=== PATIENT | male | born 1950 | race Caucasian/White ===

== ENCOUNTER 2019-10-26 09:47 | Inpatient (IN) ==
[2019-10-26] MEDS ORDERED: *HR* Midazolam HCl 2 MG/2 ML VIAL ONE (10:54)
[2019-10-26] MEDS ORDERED: *HR* Heparin 10,000 UNIT/10 ML VIAL ONE (11:24)
[2019-10-26] MEDS ORDERED: Ondansetron 4 MG/2 ML VIAL ONE (11:49)
[2019-10-26] MEDS ORDERED: Naloxone 0.4 MG/ML INJ IVP PRN (13:09)
[2019-10-26] MEDS ORDERED: Ondansetron 4 MG/2 ML VIAL IVP PRN (13:16)
[2019-10-26] MEDS ORDERED: Aspirin 325 MG TABLET PO ONE (13:19)
[2019-10-26] MEDS ORDERED: Dextrose Gel 15 GM/37.5 ML TUBE PO PRN ×2 (13:26)
[2019-10-26] MEDS ORDERED: *HR* Dextrose 50 % in Water (Syg) 50 ML SYRINGE IVP PRN (13:26)
[2019-10-26] MEDS ORDERED: D5% in Water 1,000 ML IVC PRN (13:26)
[2019-10-26] MEDS: Insulin LISPRO 300 UNITS/3 ML VIAL SQ SCH (15:00)
[2019-10-26] MEDS ORDERED: Perflutren Lipid Microsphere 1.3 ML in 0.9 % Sodium Chloride 8.7 ML IVP ONE (15:56)
[2019-10-26] MEDS: Amiodarone Premix 360 MG/200 ML BAG IVC SCH (16:45)
[2019-10-26] MEDS: *HR* Heparin 5,000 UNIT/ML VIAL SQ SCH (18:15)
[2019-10-26 18:47] LABS: Estimated Average Glucose 103 mg/dl
[2019-10-26] MEDS: *HR* Ticagrelor 90 MG TABLET PO SCH (21:48)
[2019-10-27] MEDS: Amiodarone Premix 360 MG/200 ML BAG IVC SCH (04:42)
[2019-10-27 05:27] LABS: Alanine Aminotransferase 18 Units/L (7-52); Albumin 3.4 g/dL (3.5-5.7); Albumin/Globulin Ratio 1.7 (1.1-2.2); Alkaline Phosphatase 24 Units/L (34-104); Aspartate Amino Transferase 42 Units/L (13-39); BUN/Creatinine Ratio 17 (6-26); Bilirubin,Total 0.3 mg/dL (0.3-1.0); Blood Urea Nitrogen 22 mg/dL (8-23); Calcium 8.8 mg/dL (8.6-10.3); Carbon Dioxide 32 mEq/L (23-29); Chloride 106 mEq/L (98-107); Glucose 101 mg/dL (70-105); Magnesium 2.1 mg/dL (1.6-2.6); Osmolality,Calculated 293 (280-300); Potassium 3.9 mEq/L (3.5-5.1); Sodium 140 mEq/L (136-145); Total Protein 5.4 g/dL (6.4-8.9); eGFR For African Americans > 60 (> 60); eGFR For Non-African Americans 55 (> 60)
[2019-10-27] MEDS: *HR* Heparin 5,000 UNIT/ML VIAL SQ SCH ×2 (05:35→18:05)
[2019-10-27] MEDS: *HR* Ticagrelor 90 MG TABLET PO SCH ×2 (08:31→20:57)
[2019-10-27] MEDS: Insulin LISPRO 300 UNITS/3 ML VIAL SQ SCH ×3 (08:41→15:29)
[2019-10-27] MEDS ORDERED: Lisinopril 20 MG TABLET PO SCH (09:00)
[2019-10-27] MEDS ORDERED: Aspirin 81 MG TAB.CHEW PO SCH (09:00)
[2019-10-27] MEDS ORDERED: Dextrose Gel 15 GM/37.5 ML TUBE PO PRN ×2 (19:19)
[2019-10-27] MEDS ORDERED: *HR* Dextrose 50 % in Water (Syg) 50 ML SYRINGE IVP PRN (19:19)
[2019-10-27] MEDS ORDERED: Naloxone 0.4 MG/ML INJ IVP PRN (19:19)
[2019-10-27] MEDS ORDERED: D5% in Water 1,000 ML IVC PRN (19:19)
[2019-10-27] MEDS ORDERED: Ondansetron 4 MG/2 ML VIAL IVP PRN (19:19)
[2019-10-28 01:51] LABS: Basophils % 0.4 %; Eosinophils # 0.1 K/mcL (0.0-0.6); Hematocrit 37.9 % (37.5-50.1); Hemoglobin 12.3 g/dL (12.9-16.9); Immature Granulocytes % 0.4 % (0-4); Lymphocytes # 0.9 K/mcL (0.6-4.6); Lymphocytes % 10.9 %; Mean Corpuscular HGB Conc 32.5 g/dL (31.6-35.5); Mean Corpuscular Hemoglobin 30.8 pg (28.0-33.3); Mean Corpuscular Volume 94.8 fL (83.0-100.0); Mean Platelet Volume 10.5 fL (9.4-12.4); Monocytes # 0.8 K/mcL (0.0-1.3); Monocytes % 9.7 %; Neutrophils # 6.5 K/mcL (1.6-8.9); Platelet Count 172 K/mcL (140-400); Red Cell Distribution Width 12.4 % (11.5-14.5); Segmented Neutrophils % 77.6 %; White Blood Count 8.3 K/mcL (4.3-11.1)
[2019-10-28 02:05] LABS: Chol/HDL Ratio 3.8 (0-4.9)
[2019-10-28 04:06] LABS: Albumin 3.5 g/dL (3.5-5.7); Albumin/Globulin Ratio 1.7 (1.1-2.2); Bilirubin,Total 0.5 mg/dL (0.3-1.0); Globulin 2.1 g/dL (2.4-3.5); Potassium 4.3 mEq/L (3.5-5.1); Total Protein 5.6 g/dL (6.4-8.9)
[2019-10-28] MEDS: *HR* Heparin 5,000 UNIT/ML VIAL SQ SCH ×2 (05:10→17:59)
[2019-10-28] MEDS ORDERED: 0.9 % Sodium Chloride 1,000 ML IVC SCH (08:15)
[2019-10-28] MEDS: Fenofibrate 54 MG TABLET PO SCH (08:33)
[2019-10-28] MEDS: hydroCHLOROthiazide 25 MG TABLET PO SCH (08:33)
[2019-10-28] MEDS: Cholecalciferol (D-3) 1,000 UNIT (25MCG) TABLET PO SCH (08:33)
[2019-10-28] MEDS: Aspirin 81 MG TAB.CHEW PO SCH (08:33)
[2019-10-28] MEDS: *HR* Glimepiride 2 MG TABLET PO SCH (08:33)
[2019-10-28] MEDS: *HR* Ticagrelor 90 MG TABLET PO SCH ×2 (08:34→21:34)
[2019-10-28] MEDS: Insulin LISPRO 300 UNITS/3 ML VIAL SQ SCH ×3 (08:35→16:19)
[2019-10-28] MEDS ORDERED: Lisinopril 20 MG TABLET PO SCH (09:00)
[2019-10-28] MEDS: *HR* Pioglitazone 15 MG TABLET PO SCH (10:29)
[2019-10-28] MEDS: amLODIPine 5 MG TABLET PO SCH (13:47)
[2019-10-29 03:01] LABS: Alanine Aminotransferase 19 Units/L (7-52); Albumin 3.5 g/dL (3.5-5.7); Albumin/Globulin Ratio 1.7 (1.1-2.2); Alkaline Phosphatase 26 Units/L (34-104); Aspartate Amino Transferase 24 Units/L (13-39); BUN/Creatinine Ratio 21 (6-26); Bilirubin,Total 0.6 mg/dL (0.3-1.0); Blood Urea Nitrogen 26 mg/dL (8-23); Carbon Dioxide 27 mEq/L (23-29); Chloride 104 mEq/L (98-107); Globulin 2.1 g/dL (2.4-3.5); Glucose 72 mg/dL (70-105); Osmolality,Calculated 291 (280-300); Potassium 4.2 mEq/L (3.5-5.1); Sodium 139 mEq/L (136-145); Total Protein 5.6 g/dL (6.4-8.9); eGFR For African Americans > 60 (> 60); eGFR For Non-African Americans 59 (> 60)
[2019-10-29 03:06] LABS: Basophils % 0.4 %; Eosinophils # 0.1 K/mcL (0.0-0.6); Eosinophils % 1.5 %; Hematocrit 37.8 % (37.5-50.1); Hemoglobin 12.9 g/dL (12.9-16.9); Immature Granulocytes % 0.6 % (0-4); Lymphocytes % 13.3 %; Mean Corpuscular HGB Conc 34.1 g/dL (31.6-35.5); Mean Corpuscular Hemoglobin 30.8 pg (28.0-33.3); Mean Corpuscular Volume 90.2 fL (83.0-100.0); Mean Platelet Volume 10.8 fL (9.4-12.4); Monocytes # 0.9 K/mcL (0.0-1.3); Monocytes % 11.5 %; Neutrophils # 5.7 K/mcL (1.6-8.9); Platelet Count 172 K/mcL (140-400); Red Blood Count 4.19 M/mcL (4.19-5.50); Red Cell Distribution Width 12.1 % (11.5-14.5); Segmented Neutrophils % 72.7 %; White Blood Count 7.8 K/mcL (4.3-11.1)
[2019-10-29] MEDS: *HR* Heparin 5,000 UNIT/ML VIAL SQ SCH ×2 (06:55→17:21)
[2019-10-29] MEDS: Lisinopril 20 MG TABLET PO SCH (09:34)
[2019-10-29] MEDS: Insulin LISPRO 300 UNITS/3 ML VIAL SQ SCH ×3 (09:34→17:21)
[2019-10-29] MEDS: Aspirin 81 MG TAB.CHEW PO SCH (09:35)
[2019-10-29] MEDS: Fenofibrate 54 MG TABLET PO SCH (09:35)
[2019-10-29] MEDS: hydroCHLOROthiazide 25 MG TABLET PO SCH (09:35)
[2019-10-29] MEDS: *HR* Pioglitazone 15 MG TABLET PO SCH (09:35)
[2019-10-29] MEDS: *HR* Glimepiride 2 MG TABLET PO SCH (09:35)
[2019-10-29] MEDS: amLODIPine 5 MG TABLET PO SCH (09:35)
[2019-10-29] MEDS: *HR* Ticagrelor 90 MG TABLET PO SCH ×2 (09:36→20:51)
[2019-10-29] MEDS: Cholecalciferol (D-3) 1,000 UNIT (25MCG) TABLET PO SCH (09:36)
[2019-10-29] MEDS ORDERED: amLODIPine 5 MG TABLET PO ONE (11:00)
[2019-10-29] MEDS ORDERED: carvediloL 6.25 MG TABLET PO SCH (17:00)
[2019-10-30] MEDS: *HR* Heparin 5,000 UNIT/ML VIAL SQ SCH (06:35)
[2019-10-30] MEDS ORDERED: carvediloL 6.25 MG TABLET PO SCH (08:00)
[2019-10-30 08:06] VITALS: BP 174/96
[2019-10-30] MEDS: Insulin LISPRO 300 UNITS/3 ML VIAL SQ SCH (08:40)
[2019-10-30] MEDS: Lisinopril 20 MG TABLET PO SCH (08:49)
[2019-10-30] MEDS: Cholecalciferol (D-3) 1,000 UNIT (25MCG) TABLET PO SCH (08:49)
[2019-10-30] MEDS: hydroCHLOROthiazide 25 MG TABLET PO SCH (08:49)
[2019-10-30] MEDS: *HR* Ticagrelor 90 MG TABLET PO SCH (08:50)
[2019-10-30] MEDS: *HR* Pioglitazone 15 MG TABLET PO SCH (08:52)
[2019-10-30] MEDS: *HR* Glimepiride 2 MG TABLET PO SCH (08:52)
[2019-10-30] MEDS: Aspirin 81 MG TAB.CHEW PO SCH (08:52)
[2019-10-30] MEDS: Fenofibrate 54 MG TABLET PO SCH (08:53)
[2019-10-30] MEDS ORDERED: amLODIPine 5 MG TABLET PO SCH (09:00)
== END 2019-10-30 16:23 | disposition home or self-care (01) | DRG 246 ==
LOC: ICNU 12:46 → 2NENU 10-27 18:25
PROVIDERS: ADMIT Internal Medicine Cardiovascular Disease; ATTEND Internal Medicine Cardiovascular Disease